=== PATIENT | female | born 1965 | race Caucasian/White ===

== ENCOUNTER 2021-01-04 08:26 | Outpatient (CLI) | payer BC, SELFPAY ==
[2021-01-04 09:22] LABS: Alanine Aminotransferase 23 U/L (4-35); Albumin Level 4.5 g/dL (3.5-5.1); Alkaline Phosphatase 48 U/L (38-126); Anion Gap 7 mmol/L (8-16); Aspartate Amino Transferase 25 U/L (14-36); Bilirubin,Total 0.2 mg/dL (0.2-1.3); Blood Urea Nitrogen 23 mg/dL (7-17); Carbon Dioxide 29 mmol/L (22-30); Chloride 104 mmol/L (98-107); Estimated Glomerular Filt Rate > 60; Glucose 106 mg/dL (65-105); Potassium 4.2 mmol/L (3.4-5.0); Sodium 140 mmol/L (137-145)
[2021-01-04 09:35] LABS: Creatinine Urine 176.3 mg/dL
[2021-01-04 09:37] LABS: MALB Creatinine Ratio 12.5 mg/g (0-30)
[2021-01-04 09:47] LABS: Total Triiodothyronine (T3) 1.27 NG/ML (0.97-1.69)
[2021-01-04 09:49] LABS: Free T4 Free Thyroxine 1.29 ng/mL (0.78-2.19)
== END 2021-01-04 08:27 | disposition home or self-care (01) ==
PROVIDERS: PCP Family Medicine; Visit Provider Internal Medicine Endocrinology, Diabetes & Metabolism
DX: E04.1 Nontoxic single thyroid nodule (principal); E11.65 Type 2 diabetes mellitus with hyperglycemia; I10 Essential (primary) hypertension; E78.5 Hyperlipidemia, unspecified
CPT/HCPCS: 36415; 80053; 82043; 84439; 84443; 84480

== ENCOUNTER 2021-01-06 11:06 | Outpatient (CLI) | payer BC, SELFPAY ==
--- NOTE | ~2021-01-06 | US_ITS ---
EXAMINATION: US thyroid EXAM DATE: 01/06/2021 11:28 INDICATION: E04.1 - Nontoxic single thyroid nodule. TECHNIQUE: Multiple grayscale and Doppler images of the thyroid were obtained (by a technologist who performed the scan) and subsequently reviewed. Individual nodules and recommendations may be reporte d in accordance with TI-RADS system as designated by the 2017 ACR White Paper TI-RADS committee. The re is no prior study for comparison. FINDINGS: Right thyroid lobe measures 5.8 x 1.5 x 1.8 cm, the left measuring 6.5 x 2.7 x 2.7 cm. These dimensio ns are moderately enlarged. Scattered thyroid nodules. There are 2 left thyroid lobe category TR 4 nodules measuring 2.7 x 2.7 x 2.3 cm and 2.9 x 2.9 x 2.5 cm. These are large enough to recommend ultrasound-guided biopsy based on current recommendations. There is a right thyroid lobe nodule measuring 1.4 x 0.9 x 1.1, containing single region curvilinear echogenicity, could be calcification. Category TR 4. IMPRESSION: Multinodular goiter. 2 largest left thyroid lobe nodules should be considered for ultraso und-guided biopsy. Reviewed, dictated and finalized at location A. IMPRESSION: Multinodular goiter. 2 largest left thyroid lobe nodules should be considered for ultrasound-guided biopsy.
== END 2021-01-06 11:07 | disposition home or self-care (01) ==
PROVIDERS: PCP Family Medicine; Visit Provider Internal Medicine Endocrinology, Diabetes & Metabolism
DX: E04.2 Nontoxic multinodular goiter (principal)
CPT/HCPCS: 76536

== ENCOUNTER 2021-01-31 09:08 | Outpatient (CLI) | payer BC, SELFPAY ==
--- NOTE | ~2021-01-31 | US_ITS ---
EXAMINATION: US FNA w image guidance, US FNA additional DATE: 01/31/2021 10:20 INDICATION: Thyroid nodules TECHNIQUE: A time-out was performed to verify the patient's name, date of , and procedure to be performed . The procedure and its benefits and risks were discussed with the patient. Risks specifically discus sed included bleeding and infection. The patient understood the risks and agreed to proceed. The neck was prepped and draped in the usual sterile manner. 3 mL 1% lidocaine was used for local anesthesia . 5 passes were made with a 25G needle into the more caudal 2.9 cm nodule. Appropriate needle locatio n was documented with continuous sonographic guidance. Attention was then turned to the more cephalad 2.7 cm solid nodule. 6 passes were made with a 25G needle with continuous sonographic guidance. A st erile bandage was applied. There were no immediate complications. FINDINGS: Grayscale ultrasound images demonstrate biopsy needles advanced into a 2.9 cm nodules in the inferior left thyroid and subsequently into a 2.7 cm solid nodule in the mid left thyroid. IMPRESSION: 1. Successful ultrasound-guided fine needle aspiration of a 2.9 cm TI RADS 4 nodule at the inferior left thyroid lobe. 2. Successful ultrasound-guided fine-needle aspiration of a 2.7 cm TI RADS 4 nodule in the mid left t hyroid. Reviewed, dictated and finalized at location A. IMPRESSION: 1. Successful ultrasound-guided fine needle aspiration of a 2.9 cm TI RADS 4 n odule at the inferior left thyroid lobe. 2. Successful ultrasound-guided fine-needle aspiration of a 2.7 cm TI RADS 4 no dule in the mid left thyroid.
== END 2021-01-31 09:09 | disposition home or self-care (01) ==
PROVIDERS: PCP Family Medicine; Visit Provider Internal Medicine Endocrinology, Diabetes & Metabolism
DX: E04.1 Nontoxic single thyroid nodule (principal)
CPT/HCPCS: 10005; 10006; 88173; 88305

== ENCOUNTER 2022-06-09 10:29 | Emergency (ER) | payer BC, SELFPAY ==
[2022-06-09 10:56] VITALS: BP 142/77; PULSE 93; RESP 20; TEMP 36.4; O2SAT 99
[2022-06-09 11:02] LABS: Glucose Point of Care 237 mg/dl (65-105)
[2022-06-09 11:03] LABS: Basophils Absolute Auto 0.1 K/mm3 (0.0-0.1); Basophils Percent Auto 0.8 % (0.2-1.2); Hematocrit 33.6 % (37.0-47.0); Immature Granulocyte Absolute 0.02 K/mm3 (0.00-0.031); Immature Granulocyte Percent A 0.3 % (0-0.5); Lymphocytes Absolute Auto 1.11 K/mm3 (0.9-3.2); Lymphocytes Percent Auto 17.4 % (18.3-44.2); Mean Corpuscular HGB Conc 29.8 g/dl (32-36); Mean Corpuscular Hemoglobin 22.2 pg (26-34); Mean Corpuscular Volume 74.5 fl (80-100); Mean Platelet Volume 9.4 fl (7.4-10.4); Monocytes Absolute Auto 0.6 K/mm3 (0.1-0.6); Neutrophils Absolute Auto 4.6 K/mm3 (1.3-6.7); Neutrophils Percent Auto 71.5 % (45.5-73.1); Platelet Count Result 419 k/mm3 (150-375); Red Blood Count 4.51 M/mm3 (4.2-5.4); Red Cell Distribution Width 16.2 % (11.5-14.5); White Blood Count 6.4 K/mm3 (4.5-10.0)
[2022-06-09] MEDS: ONDANSETRON INJ 4 MG/2 ML VIAL IV PUSH (11:03)
[2022-06-09] MEDS: SODIUM CHLORIDE 0.9% IV 1,000 ML 999 ML IV CONT (11:03)
[2022-06-09 11:14] LABS: Alanine Aminotransferase 23 U/L (6-35); Albumin Level 4.5 g/dL (3.5-5.1); Alkaline Phosphatase 51 U/L (38-126); Anion Gap 16 mmol/L (8-16); Aspartate Amino Transferase 18 U/L (14-36); Bilirubin,Total 0.5 mg/dL (0.2-1.3); Blood Urea Nitrogen 19 mg/dL (7-17); Carbon Dioxide 29 mmol/L (22-30); Chloride 91 mmol/L (98-107); Estimated CRCL calculation 74 ml/min; Estimated Glomerular Filt Rate > 60; Glucose 234 mg/dL (65-110); Lipase 89 U/L (23-300); Potassium 2.9 mmol/L (3.4-5.0); Sodium 136 mmol/L (137-145)
[2022-06-09 11:23] LABS: Add Urine Microscopic? YES; Appearance Urine Cloudy (Clear); Bacteria Urine Trace /hpf; Bilirubin Urine Negative (Negative); Blood Urine Negative (Negative); Color Urine Amber (Yellow); Glucose Urine UA 2+ mg/dL (Negative); Ketones Urine Trace mg/dL (Negative); Leukocyte Esterase Ur 3+ LEU/UL (Negative); Mucus Urine Heavy /lpf; Nitrate Urine Negative (Negative); Protein Urine 1+ mg/dL (Negative); Specific Grav Ur 1.025 (1.001-1.035); Squamous Epithelial Cell Urine Many /hpf (Few); Transitional Epi Cells Urine Occasional /hpf (None Seen); Urobilinogen Urine Negative mg/dL (<2.0); WBC Urine 16-20 /hpf
[2022-06-09 11:31] VITALS: BP 134/82; PULSE 74; RESP 14; O2SAT 100
[2022-06-09] MEDS: POTASSIUM CHLORIDE 20 MEQ TABLET 40 MEQ PO (11:54)
[2022-06-09 12:01] VITALS: BP 146/76; PULSE 70; RESP 14; O2SAT 100
--- NOTE | 2022-06-09 12:14 | ED.NAVMDI ---
HPI - Nausea/Vomiting/Diarrhea General Chief complaint: Nausea/Vomiting/Diarrhea Stated complaint: vomiting Time Seen by Provider: 06/09/22 10:36 History of Present Illness HPI Narrative: Patient is a 56-year-old female who presents ER with nausea and vomiting. Ongoing over the last week. She had 1 episode of emesis today. Reports history of chronic emesis but this has been more persistent. No diarrhea. Denies fevers or chills or sweats. No epigastric pain. She does have some acid reflux which is also a chronic issue for her. Denies urinary frequency urgency or dysuria. No known sick contacts. Related Data Home Medications Medication Instructions Recorded Confirmed cyanocobalamin (vitamin B-12) 1,000 mcg PO DAILY 06/30/19 06/09/22 1,000 mcg capsule omeprazole 20 mg capsule,delayed 20 mg PO DAILY 06/30/19 06/09/22 release metformin 500 mg tablet,extended 1,000 mg PO BID 06/09/22 06/09/22 release 24 hr Allergies Allergy/AdvReac Type Severity Reaction Status Date / Time No Known Allergies Allergy Mild Verified 06/09/22 10:59 Review of Systems Review of Systems: All systems reviewed & are unremarkable except as noted in HPI and below Constitutional: Constitutional: Denies chills, Denies fatigue and Denies fever(s) ENT: Denies nasal congestion and Denies sore throat Cardiovascular: Cardiovascular: Denies chest pain, Denies rapid heart rate and Denies radiating jaw, neck or arm pain Respiratory: Respiratory: Denies cough and Denies dyspnea Gastrointestinal: Gastrointestinal: Reports abdominal pain, Reports heartburn, Denies diarrhea, Reports nausea and Reports vomiting Genitourinary: Genitourinary: Denies nocturia and Denies dysuria [facility] Past Medical History Medical History B12 deficiency Chronic GERD Diabetes type 2, uncontrolled Essential (primary) hypertension HLD (hyperlipidemia) Surgical History Surgical History History of tonsillectomy S/P cholecystectomy Social History Social History Smoking status: Never smoker Second hand tobacco smoke exposure: No Alcohol intake: never Substance use: never Substance use type: does not use Gender identity (if verbalized by the patient): Female Exam Narrative: GENERAL: Well-appearing, well-nourished, and in no acute distress. HEAD: Normocephalic, atraumatic. ENT: Mucous membranes moist. CHEST: Clear to auscultation. No respiratory distress. HEART: Regular rate and rhythm. Normal peripheral pulses. ABDOMEN: Soft, nontender, nondistended. EXTREMITIES: Normal range of motion. No edema. SKIN: Warm, dry, no rash. NEURO: Alert and oriented x3. PSYCH: Normal mood and affect. Course Course Emergency Course: Nausea improved. Potassium replaced. Discharge home. Vital Signs Vital signs: Vital Signs Temperature 97.5 F L 06/09/22 10:56 Pulse Rate 93 06/09/22 10:56 Respiratory Rate 20 06/09/22 10:56 Blood Pressure 142/77 H 06/09/22 10:56 Pulse Oximetry 99 06/09/22 10:56 Temperature 97.5 F L 06/09/22 10:56 Pulse Rate 78 06/09/22 12:31 Respiratory Rate 16 06/09/22 12:31 Blood Pressure 141/76 H 06/09/22 12:31 Pulse Oximetry 100 06/09/22 12:31 MDM - Nausea/Vomiting/Diarrhea Lab Data Result diagrams: 06/09/22 10:57 06/09/22 10:57 Labs: Lab Results 06/09/22 06/09/22 06/09/22 Range/Units 10:56 10:57 10:57 WBC 6.4 (4.5-10.0) K/mm3 RBC 4.51 (4.2-5.4) M/mm3 Hgb 10.0 L (12.0-15.0) g/dL Hct 33.6 L (37.0-47.0) % MCV 74.5 L (80-100) fl MCH 22.2 L (26-34) pg MCHC 29.8 L (32-36) g/dl RDW 16.2 H (11.5-14.5) % Plt Count 419 H (150-375) k/mm3 MPV 9.4 (7.4-10.4) fl Immature Gran % (Auto) 0.3 (0-0.5) % Neut % (Auto) 71.5 (45.5-73.1) % Lymph % (Auto)
[2022-06-09 12:31] VITALS: BP 141/76; PULSE 78; RESP 16; O2SAT 100
[2022-06-09 13:31] VITALS: BP 141/83; PULSE 73; RESP 16; O2SAT 100
== END 2022-06-09 13:41 | disposition home or self-care (01) ==
PROVIDERS: Emergency Provider Emergency Medicine; PCP Family Medicine
DX: R11.2 Nausea with vomiting, unspecified (principal); E87.6 Hypokalemia; K21.9 Gastro-esophageal reflux disease without esophagitis; E11.9 Type 2 diabetes mellitus without complications; I10 Essential (primary) hypertension; E78.5 Hyperlipidemia, unspecified; E53.8 Deficiency of other specified B group vitamins
CPT/HCPCS: 36415; 80053; 81001; 82948; 83690; 85025; 87086; 87088; 96361; 96374; 99284; A9270; J2405; J7030

== ENCOUNTER 2023-01-19 08:17 | Outpatient (CLI) | payer BC, SELFPAY ==
[2023-01-19 09:59] LABS: Alanine Aminotransferase 28 U/L (6-35); Albumin Level 4.4 g/dL (3.5-5.1); Alkaline Phosphatase 56 U/L (38-126); Anion Gap 14 mmol/L (8-16); Aspartate Amino Transferase 26 U/L (14-36); Bilirubin,Total 0.3 mg/dL (0.2-1.3); Blood Urea Nitrogen 25 mg/dL (7-17); Calcium 9.1 mg/dL (8.4-10.2); Carbon Dioxide 21 mmol/L (22-30); Chloride 103 mmol/L (98-107); Cholesterol 171 mg/dL (0-200); Estimated Glomerular Filt Rate > 60; Glucose 156 mg/dL (65-110); HDL Direct 52 mg/dL; Potassium 4.9 mmol/L (3.4-5.0); Sodium 138 mmol/L (137-145); Triglycerides 198 mg/dL (<150)
[2023-01-19 10:04] LABS: LDL Cholesterol Direct 90 mg/dL
[2023-01-19 10:05] LABS: Hemoglobin A1C 7.8 % (<5.7)
[2023-01-19 10:23] LABS: MALB Creatinine Ratio 23.9 mg/g (0-30); Microalbumin Urine Random 39.4 mg/L (0-16.7)
== END 2023-01-19 08:18 | disposition home or self-care (01) ==
PROVIDERS: PCP Family Medicine; Visit Provider Internal Medicine Endocrinology, Diabetes & Metabolism
DX: E11.9 Type 2 diabetes mellitus without complications (principal); E78.5 Hyperlipidemia, unspecified
CPT/HCPCS: 36415; 80053; 80061; 82043; 83036; 84439; 84443

== ENCOUNTER 2023-07-26 09:41 | Outpatient (CLI) | payer BC, SELFPAY ==
--- NOTE | ~2023-07-26 | CT_ITS ---
EXAMINATION: CT abdomen pelvis w con DATE: 07/26/2023 10:06 INDICATION: Nausea and vomiting. TECHNIQUE: Computed tomography (CT) of the abdomen and pelvis was performed without intravenous contr ast. The dose-length product was 456.09 mGy-cm. Automated exposure control and iterative reconstructi on technique were employed. COMPARISON: 02/17/2006. FINDINGS: Lung bases unremarkable. Heart size normal. Small hiatal hernia. Small fat-containing umbil ical hernia. No significant vascular abnormality. No aneurysm. No lymphadenopathy. Fatty infiltration of the liver. Status post cholecystectomy. Mild hepatomegaly. There are calcified granulomas of the spleen. The pancreas, adrenal glands and left kidney are unremarkable. There is a small slightly exop hytic right renal cyst anteriorly. No hydronephrosis. Nonobstructive bowel gas pattern. No free air o r free fluid. No acute osseous abnormality. There is some mucosal proliferation of the proximal colon . IMPRESSION: 1. Hepatomegaly with fatty infiltration of the liver. Reviewed, dictated and finalized at location L. NESS INFORMATION MANAGER
== END 2023-07-26 09:42 | disposition home or self-care (01) ==
PROVIDERS: PCP Family Medicine; Visit Provider Physician Assistant
DX: R11.2 Nausea with vomiting, unspecified (principal); R10.9 Unspecified abdominal pain; R19.7 Diarrhea, unspecified; E11.65 Type 2 diabetes mellitus with hyperglycemia; K76.0 Fatty (change of) liver, not elsewhere classified
CPT/HCPCS: 74177; Q9967